=== PATIENT | male | born 1965 | race Caucasian/White ===

== ENCOUNTER 2018-07-20 09:46 | Day surgery (SDC) | payer OTHER ==
--- NOTE | 2018-07-20 07:50 | HP ---
DATE OF SURGERY: 07/20/2018 HISTORY OF PRESENT ILLNESS: The patient is a 52 year-old in need of screening colonoscopy. He also has some slight elevation of liver function test and had cholelithiasis and is in need of cholecystectomy. No pain, nausea or vomiting. His family history is negative for colon cancer. He denies any current rectal bleeding. PAST MEDICAL HISTORY: He denies any chronic illnesses. PAST SURGICAL HISTORY: He broke his femur in 1986. MEDICATIONS: None. ALLERGIES: NKDA. FAMILY HISTORY: Negative in regards to this problem. SOCIAL HISTORY: Chews one can of chew a day. Denies smoking. He denies alcohol abuse. REVIEW OF SYSTEMS: Twelve systems reviewed. No chest pain or palpitations other systems negative or noncontributory as above and per preadmission questionnaire. PHYSICAL EXAMINATION: GENERAL: No acute distress. HEENT: Sclerae nonicteric. NECK: No JVD. CHEST: Equal excursion, nonlabored breathing. CVS: Regular rate and rhythm. ABDOMEN: Soft. No peritoneal signs. EXTREMITIES: No significant edema. NEURO: Alert, oriented, moving extremities symmetrically. No gross motor deficits noted. IMPRESSION: Need for screening colonoscopy. I feel he is a candidate. He was shown the risk sheet and explained the procedure in detail including but not limited to bleeding or infection, risk bleeding or infection, risk of bowel injury or perforation possibly requiring open procedure, risk of missed or nondiagnosis or incomplete exam possibly requiring barium enema, other studies or procedures, general risk of anesthesia or sedation but not limited to. Risk of bowel prep. Risk of nausea, vomiting or cramping but not limited to. He understands and agrees to the planned procedure and will proceed with outpatient screening colonoscopy. At a later date as he had elevated liver function test in the past and known to have cholelithiasis I feel he would benefit from laparoscopic cholecystectomy possible open. Risks and benefits explained in detail for that procedure including to but not limited to infection, risk of trocar injury or hernia, risk of bile leak, bile duct injury, retained stone or sludge possibly requiring further procedure either open or ERCP, general risk of anesthesia, deep venous thrombosis, pulmonary embolism, pneumonia, perioperative aches, pains, bloating, constipation and/or loose stools possible chronic in nature. Possible need for open procedure. He understands and agrees to the plan, will proceed with colonoscopy initially and then at a later date proceed with laparoscopic cholecystectomy possible open. Will proceed with screening colonoscopy initially.
[~2018-07-20 09:46] MED LIST: Lactated Ringers 1,000 ML IV ONE; Lactated Ringers 1,000 ML IV SCH
[2018-07-20] MEDS ORDERED: Ketamine HCl 50 MG/ML IV ONE (09:47)
[2018-07-20] MEDS ORDERED: DIPRIVAN 200 MG/20 ML IV ONE (09:47)
[2018-07-20] MEDS ORDERED: BICITRA 30 ML CUP ONE (11:16)
[2018-07-20] MEDS ORDERED: BICITRA 30 ML CUP PO STA (11:28)
[2018-07-20 13:22] VITALS: O2SAT 100
[2018-07-20 13:25] VITALS: BP 124/84; PULSE 55
[2018-07-20] MEDS ORDERED: Lactated Ringers 1,000 ML IV ONE (13:42)
--- NOTE | 2018-07-20 15:05 | OP ---
SURGERY DATE/TIME: 07/20/2018 1145 PREOPERATIVE DIAGNOSIS: Need for screening colonoscopy. POSTOPERATIVE DIAGNOSES: 1) Somewhat poor prep limiting colon exam for small to very small lesions. 2) Few diverticula. 3) Small benign appearing polypoid projection or appendage sigmoid colon. 4) Small internal hemorrhoids. 5) Very tortuous colon. PROCEDURES: 1) Colonoscopy to cecum. 2) Hot snare removal sigmoid colon polypoid projection or appendage, path pending. SURGEON: Dr. Matt Montgomery. ANESTHESIA: MAC. ESTIMATED BLOOD LOSS: Minimal. INDICATIONS: As noted above. Risks and benefits explained in detail but not limited to and consent obtained. DESCRIPTION OF PROCEDURE AND FINDINGS: The patient is taken to the endoscopy room. MAC anesthesia introduced. After official time out and no disagreement with planned procedure, digital rectal exam did not reveal any rectal masses. He did have some small internal hemorrhoids. Video colonoscope inserted and passed up through the tortuous very tortuous sigmoid, descending, transverse colon requiring positioning on his back and a couple different staff members putting external pressure, the scope was able to be passed down the ascending colon to cecum, appendiceal orifice and valve visualized. Prep overall was somewhat poor with several areas of solid, semi-solid and some liquidy stool limiting exam for small lesions. However there did not appear to be any signs of any large polyps, masses or any malignant appearing type lesions. Given the prep quality despite suction-irrigating did limit exam for very small lesions. The scope is slowly and carefully withdrawn. No signs of any large polyps, masses or obstructing lesions. There was a polypoid projection that appeared to be benign and thin in the sigmoid colon this is removed with hot snare polypectomy with brief bursts of cautery. Good hemostasis noted. Otherwise he had a few diverticula, had some small internal hemorrhoids. There were no signs of any large polyps, masses or obstructing lesions. Again, the prep did limit the exam, will await final path to decide when to repeat the exam whether three to five years depending on the final path given the quality of prep. Findings discussed with the family out in the waiting area.
== END 2018-07-20 13:28 | disposition home or self-care (01) ==
LOC: SDC 09:46
PROVIDERS: ATTEND Surgery
DX: K63.9 Disease of intestine, unspecified (principal); D12.5 Benign neoplasm of sigmoid colon; K57.92 Diverticulitis of intestine, part unspecified, without perforation or abscess without bleeding; K64.8 Other hemorrhoids; Q43.8 Other specified congenital malformations of intestine; R10.9 Unspecified abdominal pain
CPT/HCPCS: 88305; 94250; J2704; A9270-GY

== ENCOUNTER 2018-07-27 12:31 | Day surgery (SDC) | payer OTHER ==
--- NOTE | 2018-07-27 07:47 | HP ---
DATE OF SURGERY: 07/27/2018 HISTORY OF PRESENT ILLNESS: The patient is a 52 year-old with elevated liver function test a few weeks ago. No current pain or vomiting. He had some history of some diverticulitis in the past. He had cholelithiasis on CT scan. PAST MEDICAL HISTORY: No acute or chronic illnesses. PAST SURGICAL HISTORY: He broke his femur 1986. MEDICATIONS: None. ALLERGIES: NKDA. FAMILY HISTORY: Negative for colon cancer. SOCIAL HISTORY: He chews one can a day, denies smoking, denies alcohol abuse. REVIEW OF SYSTEMS: Twelve systems reviewed. No chest pain or palpitations other systems negative or noncontributory as above and per preadmission questionnaire. PHYSICAL EXAMINATION: GENERAL: No acute distress. HEENT: Sclerae nonicteric. NECK: No JVD. CHEST: Equal excursion, nonlabored breathing. CVS: Regular rate and rhythm. ABDOMEN: Soft. No peritoneal signs. EXTREMITIES: No significant edema. NEURO: Alert, moving extremities symmetrically. No gross motor deficits noted. IMPRESSION: History of elevated liver function test, history of cholelithiasis on CT scan. I feel he would benefit from laparoscopic cholecystectomy possible open to reduce the risk of obstructive jaundice or future biliary colic issues or attacks. He was shown the gallbladder pamphlet risk sheet and explained the procedure in detail including bleeding or infection, risk of bowel injury or perforation possibly requiring open procedure, risk of trocar injury or hernia, risk of bowel leak, bladder duct injury, retained stone or sludge possibly requiring further procedure either open or ERCP, general risk of anesthesia, deep venous thrombosis, pulmonary embolism, pneumonia, perioperative risk of aches, pains, bloating, constipation and/or loose stools possibly even chronic in nature, general risk of anesthesia, possible need for open procedure, risk of deep venous thrombosis, pulmonary embolism or pneumonia. He understands all the above but not limited to, will proceed with laparoscopic cholecystectomy with possible open as an outpatient. He had a recent colonoscopy that did not show on any large polyps but limited prep.
[~2018-07-27 12:31] MED LIST changes: -Lactated Ringers 1,000 ML IV SCH; +Sensorcaine 0.25% 10 ML ONE
[2018-07-27] MEDS ORDERED: Versed 2 MG/2 ML Injection IV ONE (12:32)
[2018-07-27] MEDS ORDERED: BRIDION 200MG/2ML IV ONE (12:32)
[2018-07-27] MEDS ORDERED: DIPRIVAN 200 MG/20 ML IV ONE (12:32)
[2018-07-27] MEDS ORDERED: SUBLIMAZE 250 MCG/5 ML IJ ONE (12:32)
[2018-07-27] MEDS ORDERED: Zemuron 100 MG/10 ML IJ ONE (12:32)
[2018-07-27] MEDS ORDERED: Propofol 1000 mg/100 ml Bottle 100 ML IV ONE (12:32)
[2018-07-27] MEDS ORDERED: Lactated Ringers 1,000 ML IV ONE (12:36)
[2018-07-27] MEDS ORDERED: MEFOXIN 2 GM PREMIX** 2 GM/50 ML ML IV ONE (12:40)
[2018-07-27] MEDS ORDERED: Lactated Ringers 1,000 ML IV SCH (13:00)
[2018-07-27] MEDS ORDERED: Pepcid 20 MG VIAL IV ONE ×2 (13:05→13:16)
[2018-07-27] MEDS ORDERED: BICITRA 30 ML CUP ONE (13:05)
[2018-07-27] MEDS ORDERED: Reglan 10 MG/2 ML ONE (13:05)
[2018-07-27] MEDS ORDERED: Reglan 10 MG/2 ML IV ONE ×2 (13:07→13:08)
[2018-07-27] MEDS ORDERED: BICITRA 30 ML CUP PO ONE (13:08)
[2018-07-27] MEDS ORDERED: Pre-Attached Lta Kit TP ONE (15:17)
[2018-07-27 17:22] VITALS: O2SAT 100
[2018-07-27 17:49] VITALS: BP 131/79; PULSE 59
--- NOTE | 2018-07-28 07:51 | OP ---
SURGERY DATE/TIME: 07/27/2018 1520 PREOPERATIVE DIAGNOSIS: Cholelithiasis, chronic cholecystitis. POSTOPERATIVE DIAGNOSIS: Cholelithiasis, chronic cholecystitis. PROCEDURE: Laparoscopic cholecystectomy. SURGEON: Dr. Matt Montgomery. ANESTHESIA: General. ESTIMATED BLOOD LOSS: Minimal. INDICATIONS: As noted above. Risks and benefits explained in detail but not limited to and consent obtained. DESCRIPTION OF PROCEDURE AND FINDINGS: The patient was taken to the OR. General anesthesia induced. Abdomen prepped and draped in the usual sterile fashion. After official time out and no disagreement with planned procedure, a transverse incision made at the supraumbilical area. Fascia grasped and pulled upward. Veress needle inserted and tested with saline. Pneumoperitoneum accomplished insufflating opening pressure of 0-15. An 11 mm bladeless port and camera inserted without difficulty followed by two - 5 mm right upper quadrant ports and 5 mm epigastric port. Gallbladder grasped and retracted over the edge of the liver. It had some omental adhesions to it carefully pulled down from posterior, lateral to anterior fashion. It had some chronic inflammatory reaction. Slowly and carefully the cystic duct and infundibular junction slowly and carefully well skeletonized until critical view obtained both anteriorly and posteriorly. Once this was accomplished cystic artery and cystic duct were clipped x3 and divided in usual fashion. The gallbladder is slowly and carefully dissected free from its dense attachment to the liver bed. It was fairly vascular requiring additional clipping side branches off the cystic artery directly on the gallbladder wall this took some time but was slowly and carefully accomplished staying directly on the gallbladder wall. Just prior to releasing from final attachments to the anterior edge of the liver the liver bed re-inspected. Clips noted in place in cystic duct and cystic artery stumps. There is no sign of any active bleeding or bile leakage. I felt there is no benefit from drain placement. Gallbladder released from its final attachments to the anterior edge of the liver, placed in Pleatman sac and pulled up into the supraumbilical port site in order to decompress some bile. Multiple small to medium size stones were carefully retrieved. Using Diandra the fascia spread slightly with a clamp. The gallbladder was able to be carefully pulled free and passed off with the Pleatman sac. Gallbladder pulled free and passed off. Fascial defects closed with puncture closure device with #1 Vicryl. The liver bed is re-inspected. Clips noted in place in cystic duct and cystic artery stumps. No signs of any active bleeding or bile leakage. It was felt there is no benefit from drain placement. Copious amount of irrigation accomplished laterally to the liver and suctioned free. Pneumoperitoneum decompressed. The wound was irrigated out. Skin incision closed with 4-0 Vicryl. Steri-Strips and sterile dressing applied. 0.25% Marcaine local injected along the skin incision fascial defect. The patient tolerated the procedure well. There were no immediate complications. Findings discussed with the family out in the waiting area.
== END 2018-07-27 17:52 | disposition home or self-care (01) ==
LOC: SDC 12:31
PROVIDERS: ATTEND Surgery
DX: K80.10 Calculus of gallbladder with chronic cholecystitis without obstruction (principal)
CPT/HCPCS: 88304; J0694; J2250; J2704; J3010; A9270-GY

== ENCOUNTER 2025-07-08 00:44 | Emergency (ER) | payer BC ==
[2025-07-08 00:57] VITALS: PULSE 95; TEMP 97.4
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
[2025-07-08 01:32] LABS: Amphetamine,Urine NEGATIVE (NEGATIVE); Barbiturate,Urine NEGATIVE (NEGATIVE); Benzodiazepine,Urine NEGATIVE (NEGATIVE); Cocaine,Urine NEGATIVE (NEGATIVE); Methadone,Urine NEGATIVE (NEGATIVE); Opiate,Urine NEGATIVE (NEGATIVE); PCP,Urine NEGATIVE (NEGATIVE); THC,Urine NEGATIVE (NEGATIVE)
[2025-07-08 01:44] VITALS: BP 137/88; RESP 17; O2SAT 96
== END 2025-07-08 01:45 ==
LOC: ED 00:44
DX: F10.120 Alcohol abuse with intoxication, uncomplicated (principal); Y90.5 Blood alcohol level of 100-119 mg/100 ml; I10 Essential (primary) hypertension